=== PATIENT | female | born 1990 | race Caucasian/White ===

== ENCOUNTER 2021-08-19 07:23 | Outpatient (RCR) | payer OTHER, SELFPAY ==
[2021-08-19] MEDS: ACETAMINOPHEN 325 MG TABLET 650 MG PO (07:33)
[2021-08-19] MEDS: FAMOTIDINE 20 MG TABLET PO (07:34)
[2021-08-19] MEDS: diphenhydrAMINE HCl CAP 25 MG CAPSULE PO (07:34)
[2021-08-19 07:36] VITALS: BP 120/70; PULSE 78; RESP 20; TEMP 35.8; O2SAT 100
[2021-08-19 08:54] VITALS: BP 124/58
== END 2021-08-19 09:28 ==
LOC: AMCINF 07:23
PROVIDERS: Visit Provider Internal Medicine Hematology & Oncology
DX: U07.1 COVID-19 (principal); J45.909 Unspecified asthma, uncomplicated
CPT/HCPCS: A9270; M0245; Q0245